=== PATIENT | female | born 1985 | race Caucasian/White ===

== ENCOUNTER 2020-01-09 18:41 | Emergency (ER) | payer OTHER, SELFPAY ==
[2020-01-09 18:48] VITALS: BP 124/76; BP 129/86; PULSE 79; PULSE 93; RESP 16; TEMP 36.1; O2SAT 97; O2SAT 99; BMI 34.4
--- NOTE | 2020-01-09 20:22 | PC.NURSE ---
190-PATIENT BROUGHT IN BY EMS FOR [facility] [place] [facility] [place] STATEMENTS TO SPOUSE. PATIENT REPORTS RECENTLY DRINKING TO COPE WITH STRESS OF JOB. PATIENT REPROTED HAVING A SALE AT WORK FALL THROUGH AND FEELING UPSET. PATIENT DENIES HAVING SI AT TIME OF CONVERSATION. PATIENT REPORTS FEELING IN BEHAVIORAL CONTROL. 1999-PATIENT SITTING IN [place] ROOM WATCHING TV AND INTERACTING WITH STAFF. NO QUESTIONS ON PLAN OF CARE. AFFECT IS CALM.
[2020-01-09 20:26] LABS: Anion Gap 20 (12-20); Blood Urea Nitrogen 9 mg/dL (9-16); Calcium 9.2 mg/dL (8.4-10.2); Carbon Dioxide 21 mmol/L (22-29); Chloride 108 mmol/L (96-108); Estimated Glomerular Filt Rate > 60; Glucose Random 91 mg/dL (60-115); Potassium 4.3 mmol/l (3.3-5.1); Sodium 145 mmol/L (135-145)
[2020-01-09 20:27] LABS: Basophils Absolute Auto 0.1 X10*3/uL (0.0-0.2); Basophils Percent Auto 0.7 % (0-2); Eosinophils Absolute Auto 0.1 X10*3/uL (0.0-0.4); Eosinophils Percent Auto 0.5 % (0-4); Hematocrit 47.4 % (37-47); Hemoglobin 15.7 g/dl (12.0-16.0); Imm Gran Abs Auto 0.04 X10*3/uL (0.00-0.03); Imm Gran Pct Auto 0.4 % (0.0-0.4); Lymphocytes Absolute Auto 3.9 X10*3/uL (1.2-4.9); Lymphocytes Percent Auto 35.3 % (20-40); MANUAL DIFF FLAG NO; Mean Corpuscular HGB Conc 33.1 g/dl (31.0-35.0); Mean Corpuscular Hemoglobin 29.6 pg (27.0-33.0); Mean Corpuscular Volume 89.4 fL (80-98); Mean Platelet Volume 10.2 fL (9.4-12.3); Monocytes Absolute Auto 0.3 X10*3/uL (0.1-1.2); Neutrophils Absolute Auto 6.6 X10*3/uL (2.0-8.3); Neutrophils Percent Auto 60.1 % (45-73); Platelet Count 344 X10*3/uL (160-400); Red Cell Distribution Width 13.4 % (11.0-16.0)
[2020-01-09 20:28] LABS: Ethanol 254 mg/dL
--- NOTE | 2020-01-09 21:00 | PC.NURSE ---
2030: PER PATIENT, SHE HAS A HISTORY OF ANXIETY AND SLEEP PROBLEMS THAT SHE TAKES CLONIDINE FOR. PATIENT STATES THAT SHE IS NOT COMPLIANT WITH MEDICATION AT HOME AND I ONLY TAKE MEDS WHEN I FEEL LIKE IT . PATIENT ASKED TO GIVE A NUMBER FOR HER ANXIETY, PATIENT STATES THAT IS SHE IS MODERATELY ANXIOUS. PATIENT OFFERED NONPHARMACOLOGICAL TREATMENTS FOR ANXIETY SUCH REDUCED STIMULATION, MUSIC, COLORING, JOURNALING, ECT. PATIENT REFUSED. PER PATIENT I'LL JUST WATCH TV HERE . PATIENT REMAINS HYPERVERBAL AND LOUDLY CONVERSES WITH STAFF, EASILY REDIRECTABLE. WILL CONTINUE TO MONITOR
--- NOTE | 2020-01-09 21:17 | ED_ITS ---
HPI - Psych General Chief Complaint: Psychiatric Symptoms Stated Complaint: crisis Time Seen by Provider: 01/09/20 19:26 Source: EMS Mode of arrival: EMS Limitations: no limitations History of Present Illness HPI Narrative: this is a pleasant 35-year-old female presenting via EMS from home with alcohol intoxication/ and suicidal ideation. Reports has been drinking alcohol due to increased feeling of depression and has been more stressed. States her symptoms has been going on for past several years with intermittent exacerbations states all started during an episode of depression that never properly got address. Admits to ETOH today otherwise denies any other illicit substance. Denies any recent injury, illness or fall. MD complaint: suicidal ideation, feels depressed and alcohol abuse Onset (ago): day(s) History of same: Yes Relieving factors: none and therapy ( She has had a therapist in the past but has not had any due to the COVID-19 and her therapist got a promotion) Context: recent alcohol abuse Associated psychiatric symptoms: depression Treatments prior to arrival: none If self harm: other ( SI without plan) Related Data Home Medications Medication Instructions Recorded Confirmed clonidine HCl 1 tab PO DAILY 01/09/20 01/09/20 diclofenac sodium 1 tab PO BID 01/09/20 01/09/20 gabapentin 3 cap PO TID PRN 01/09/20 01/09/20 Allergies Allergy/AdvReac Type Severity Reaction Status Date / Time amoxicillin [AMOXICILLIN] Allergy Severe RASH Unverified 12/15/19 15:32 Review of Systems Review of Systems: Constitutional: , No Fever, No Chills, No Night Sweats, No Fatigue, No Malaise ENT/Mouth: No Hearing loss, No Ear Pain, No Nasal Congestion, No Sinus Pain, No Hoarseness, No sore throat, No Rhinorrhea, No Swallowing Difficulty Eyes: No Eye Pain, No Swelling, No Redness, No Foreign Body, No Discharge, No Vision Changes Cardiovascular: No Chest Pain, No SOB, No Dyspnea on Exertion, No Orthopnea, No Edema, No Palpitations Respiratory: No Cough, No Sputum, No Wheezing, No Smoke Exposure, No Dyspnea Gastrointestinal: No Nausea, No Vomiting, No Diarrhea, No Constipation, No abdominal Pain, No Hematochezia, No Melena Genitourinary: no irregular bleeding, No Dysuria, No Urinary Frequency, No Hematuria, No Urinary Incontinence, No Urgency, No Flank Pain, No Urinary Flow Changes, No Hesitancy Musculoskeletal: No joint pain, No Myalgias, No Joint Swelling Skin: No Skin Lesions, No rash Neuro: No Weakness, No Numbness, No Paresthesias, No Loss of Consciousness, No Dizziness, No Headache Psych: No Anxiety/Panic, No Depression, No SI/HI/AH/VH, No Social Issues, Heme/Lymph: No Bruising, No Bleeding,No Lymphadenopathy Endocrine: No Polyuria, No Polydipsia, No Temperature Intolerance Yes all other systems are reviewed and are negative [facility] Past Medical History Attestation statement: The following information was validated with the patient. Medical History (Updated 01/09/20 @ 21:22 by Jerardo Cortes NP) Alcohol abuse Anxiety Depression Seizures Social History Social History Alcohol intake: current Alcohol intake frequency: a few times a week Alcohol type: beer and wine Smoking Status: Never smoker Use of substances other than those prescribed or required for medical reasons: No Advance Directives: No Advance Directives Information Provided: Yes Physical Exam Vital Signs: Vital Signs: Vital Signs Temp Pulse Resp BP Pulse Ox 01/09/20 18:48 97.0 F 93 16 129/86 97 Body Mass Index 34.4 Const: General: cooperative (found 35-year-old appearing slightly older than stated age somewhat tearful); No acute distress Nutritional Appearance: average body habitus Orientation/consciousness: patient oriented x3 HENMT: Head: Yes normal to inspection Ears: hearing grossly normal bilaterally Eyes: General: appearance normal, both eyes and all related structures Visual Wiley: normal visual wiley by confrontation Neck: Neck: Yes normal visual inspection and No tender Thyroid: Thyroid normal Chest: Chest palpation & inspection: normal inspection of the chest Resp: Effort & Inspection: normal respiratory effort Cardio: Jugular venous distension: no JVD GI: Inspection: Yes normal to inspection Percussion: Yes normal to percussion Auscultation: normal bowel sounds : General: Yes no CVA tenderness Back/Spine/Pelvis: Back: no CVA tenderness Skin: General skin exam: no rashes or lesions noted Neuro: General: patient oriented x3 Extrem: General: Yes normal to inspection Course Course Course Narrative: will check basic labs/ U tox/ ETOH and obtain care team evalu ation. Reevaluation(s) Reevaluation #1: remains common cooperative. At this time resting comfortably. Patient once clinically sober will be evaluated by the care team. Case discussed with care team had their who will see her own to 01:00 o'clock. Care transferred to 19 pending evaluation. MDM - Psych Restraints Face to Face Assessment: Face to Face Assessment: Current Situation: After assessment of the patient, a review of the pertinent medical record and a discussion with nursing staff, I feel the patient requires a restrain intervention. Reaction To: [] Medical Condition: [] Behavioral State: [] Continued Need: [] Lab Data Result diagrams: 01/09/20 20:23 01/09/20 19:49 Labs: Lab Results 01/09/20 01/09/20 01/09/20 Range/Units 19:49 19:49 19:49 WBC Cancelled RBC Cancelled Hgb Cancelled Hct Cancelled MCV Cancelled MCH Cancelled MCHC Cancelled RDW Cancelled Plt Count Cancelled MPV Cancelled Immature Gran % (Auto) (0.0-0.4) % Neut % (Auto) (45-73) % Lymph % (Auto) (20-40) % [place] % (Auto) (2-11) % Eos % (Auto) (0-4) % Baso % (Auto) (0-2) % Lymph # (Auto) (1.2-4.9) X10*3/uL [place] # (Auto) (0.1-1.2) X10*3/uL Eos # (Auto) (0.0-0.4) X10*3/uL Baso # (Auto) (0.0-0.2) X10*3/uL Abs Immat Gran (auto) (0.00-0.03) X10*3/uL Absolute Neuts (auto) (2.0-8.3) X10*3/uL Absolute Nucleated RBC Cancelled Nucleated RBC % (auto) Cancelled Neutrophils % (Manual) Cancelled Band Neutrophils % Cancelled Lymphocytes % (Manual) Cancelled Atypical Lymphs % (Man) Cancelled Monocytes % (Manual) Cancelled Eosinophils % (Manual) Cancelled Basophils % (Manual) Cancelled Metamyelocytes % Cancelled Myelocytes % Cancelled Promyelocytes % Cancelled Blast Cells % (Manual) Cancelled Plasma Cell % (Manual) Cancelled Abs Neuts (Manual) Cancelled Lymphocytes # (Manual) Cancelled Atyp Lymphs # (Manual) Cancelled Monocytes # (Manual) Cancelled Eosinophils # (Manual) Cancelled Basophils # (Manual) Cancelled Metamyelocytes # Cancelled Myelocytes # Cancelled Promyelocytes # Cancelled Blast Cells # Cancelled Plasma Cell # (Manual) Cancelled Nucleated RBCs Cancelled Hypersegmented Neuts Cancelled Smudge Cells Cancelled Toxic Granulation Cancelled Toxic Vacuolation Cancelled Dohle Bodies Cancelled Hayder Rods Cancelled WBC Morphology Comment Cancelled Platelet Estimate Cancelled Large Platelets Cancelled Giant Platelets Cancelled Plt Morphology Comment Cancelled RBC Morphology Cancelled Polychromasia Cancelled Hypochromasia Cancelled Basophilic Stippling Cancelled Microcytosis Cancelled Macrocytosis Cancelled Spherocytes Cancelled Pappenheimer Bodies Cancelled Sickle Cells Cancelled Target Cells Cancelled Tear Drop Cells Cancelled Ovalocytes Cancelled Stomatocytes Cancelled Rodriguez-Tahoma Bodies Cancelled Macy Cells Cancelled Acanthocytes (Spur) Cancelled Rouleaux Cancelled Schistocytes Cancelled Sodium 145 (135-145) mmol/L Potassium 4.3 (3.3-5.1) mmol/l Chloride 108 (96-108) mmol/L Carbon Dioxide 21 L (22-29) mmol/L Anion Gap 20 (12-20) BUN 9 (9-16) mg/dL Creatinine 0.72 (0.5-1.4) mg/dL Estim Creat Clear Calc 117.0 Estimated GFR > 60 Random Glucose 91 (60-115) mg/dL Calcium 9.2 (8.4-10.2) mg/dL Ethyl Alcohol 254 mg/dL 01/09/20 Range/Units 20:23 WBC 11.0 H RBC 5.30 Hgb 15.7 Hct 47.4 H MCV 89.4 MCH 29.6 MCHC 33.1 RDW 13.4 Plt Count 344 MPV 10.2 Immature Gran % (Auto) 0.4 (0.0-0.4) % Neut % (Auto) 60.1 (45-73) % Lymph % (Auto) 35.3 (20-40) % [place] % (Auto) 3.0 (2-11) % Eos % (Auto) 0.5 (0-4) % Baso % (Auto) 0.7 (0-2) % Lymph # (Auto) 3.9 (1.2-4.9) X10*3/uL [place] # (Auto) 0.3 (0.1-1.2) X10*3/uL Eos # (Auto) 0.1 (0.0-0.4) X10*3/uL Baso # (Auto) 0.1 (0.0-0.2) X10*3/uL Abs Immat Gran (auto) 0.04 H (0.00-0.03) X10*3/uL Absolute Neuts (auto) 6.6 (2.0-8.3) X10*3/uL Absolute Nucleated RBC 0.000 Nucleated RBC % (auto) 0.0 Neutrophils % (Manual) Band Neutrophils % Lymphocytes % (Manual) Atypical Lymphs % (Man) Monocytes % (Manual) Eosinophils % (Manual) Basophils % (Manual) Metamyelocytes % Myelocytes % Promyelocytes % Blast Cells % (Manual) Plasma Cell % (Manual) Abs Neuts (Manual) Lymphocytes # (Manual) Atyp Lymphs # (Manual) Monocytes # (Manual) Eosinophils # (Manual) Basophils # (Manual) Metamyelocytes # Myelocytes # Promyelocytes # Blast Cells # Plasma Cell # (Manual) Nucleated RBCs Hypersegmented Neuts Smudge Cells Toxic Granulation Toxic Vacuolation Dohle Bodies Hayder Rods WBC Morphology Comment Platelet Estimate Large Platelets Giant Platelets Plt Morphology Comment RBC Morphology Polychromasia Hypochromasia Basophilic Stippling Microcytosis Macrocytosis Spherocytes Pappenheimer Bodies Sickle Cells Target Cells Tear Drop Cells Ovalocytes Stomatocytes Rodriguez-Tahoma Bodies [place] Cells Acanthocytes (Spur) Rouleaux Schistocytes Sodium (135-145) mmol/L Potassium (3.3-5.1) mmol/l Chloride (96-108) mmol/L Carbon Dioxide (22-29) mmol/L Anion Gap (12-20) BUN (9-16) mg/dL Creatinine (0.5-1.4) mg/dL Estim Creat Clear Calc Estimated GFR Random Glucose (60-115) mg/dL Calcium (8.4-10.2) mg/dL Ethyl Alcohol mg/dL Discharge Plan Discharge Clinical Impression: Suicidal ideation, Alcohol intoxication Prescriptions: No Action gabapentin 300 mg capsule 3 cap PO TID PRN (Reason: Anxiety) RF: 0 clonidine HCl 0.2 mg tablet 1 tab PO DAILY RF: 0 diclofenac sodium 75 mg tablet,delayed release (/EC) 1 tab PO BID RF: 0
[2020-01-09 21:47] VITALS: BP 117/84; PULSE 89; RESP 18; TEMP 36.6; O2SAT 96
--- NOTE | 2020-01-09 22:09 | PC.NURSE ---
2100-PATIENT INTERACTING WITH STAFF AND OTHER PATIENT IN BACK [facility] ROOM. PATIENT IS NOW ANIMATED AND ALMOST HYPERVERBAL. SENTENCES ARE COHERENT AND AFFECT IS CALM. NO DISTRESS IS REPORTED. 2200-PATIENT CONTINUES TO BE ANIMATED IN CONVERSATION. PATIENT DENIES NEEDS.
[2020-01-09] MEDS: LORazepam 1 MG TABLET PO (23:59)
--- NOTE | 2020-01-10 00:03 | PC.NURSE ---
2200-PATIENT REMAINS HYPERVERBAL AND ANIMATED IN CONVERSATION. PATIENT OFFERED NON MEDICATION OPTIONS FOR ANXIETY REDUCTION. PT OFFERED WARM BLANKETS, REDUCED NOISE SETTING. PATIENT REFUSED. WILL CONTINUE TO MONITOR 2300-PATIENT SITTING IN [place], UNABLE TO REGULATE TONE OF VOICE. PATIENT EASILY REDIRECTED. PATIENT STATES SILENCE INCREASES ANXIETY. PT OFFERED HEADPHONES FOR MUSIC. 0000- PT MEDICATED WITH 1MG ATIVAN.
[2020-01-10 00:49] LABS: Glucose Urine UA NEG (NEG); Leukocyte Esterase Urine NEG (NEG); Nitrite Urine NEG (NEG); PH 5.5 (5.0-8.0); Specific Gravity - Urine 1.025 (1.005-1.025); Urine Blood NEG (NEG); Urine Ketones NEG (NEG); Urine Protein NEG (NEG-TRACE)
[2020-01-10 00:51] LABS: Appearance Urine CLEAR; Color Urine YELLOW; UPreg QC Valid YES; Urine Pregnancy NEGATIVE (NEGATIVE)
[2020-01-10 00:58] LABS: Mucus Urine 2+ /LPF; RBC Urine 0 /HPF (0); Squamous Epithelial Cell Urine 2+ /LPF; WBC Urine 0-2 /HPF (0-4)
--- NOTE | 2020-01-10 01:00 | PC.NURSE ---
Patient reports relief from anxiety. patient remains animated in conversation with staff. Patient given sandwich and offered fluids. Patient is no longer restless in chair.
[2020-01-10 01:14] LABS: Amphetamine Screen Urine Not Detected (Not Detect); Barbiturates, Urine Not Detected (Not Detect); Benzodiazepines Screen Urine Not Detected (Not Detect); Cannabinoid Screen Urine POSITIVE (Not Detect); Cocaine Screen Urine Not Detected (Not Detect); Opiate Screen Urine Not Detected (Not Detect); Phencyclidine Screen Urine Not Detected (Not Detect)
--- NOTE | 2020-01-10 02:03 | PC.NURSE ---
PER MLP PLAN AT THIS TIME IS TO BE DC HOME. PATIENT USING PHONE IN [place] TO CONTACT BOYFRIEND FOR RIDE.
[2020-01-10 02:10] VITALS: BP 125/81; PULSE 96; RESP 18; TEMP 35.9; O2SAT 96
--- NOTE | 2020-01-10 03:03 | MHC.CARE ---
Evaluated by CARE team with disposition for discharge home with referrals for outpatient therapy and partial hospitalization program. Pt also given information for psychiatrists in area that accept Medicaid.
== END 2020-01-10 02:16 | disposition home or self-care (01) ==
PROVIDERS: Nurse Practitioner Primary Care; Emergency Provider Emergency Medicine
DX: R45.851 Suicidal ideations (principal); F10.120 Alcohol abuse with intoxication, uncomplicated; Y90.8 Blood alcohol level of 240 mg/100 ml or more; F32.9 Major depressive disorder, single episode, unspecified; Z79.899 Other long term (current) drug therapy
CPT/HCPCS: 36415; 80048; 80307; 80320; 81001; 81025; 85007; 85025; 85027; 99284

== ENCOUNTER 2020-01-24 09:15 | Outpatient (RCR) | payer OTHER, SELFPAY ==
--- NOTE | 2020-01-11 13:21 | PC.NURSE ---
Pt was referred to PHP by the CARE team. Pt was scheduled for an intake assessment on 01/11/20. Pt had accepted the PHP virtual invitation, however was a no call/no show for the intake. TW attempted to call pt however was sent to voicemail after 3 rings. TW was unable to leave a message as the voicemail was not set up. Pt called back a few minutes later and stated that she forgot about the assessment and asked to reschedule. Pt rescheduled for 01/13/20 @ 1pm.
--- NOTE | 2020-01-16 12:02 | PC.ADMIT ---
Patient is a 35 year old female who started the PHP program today d/t increase in depression with passive SI and relapse on ETOH. Patient's boyfriend of 4 years reportedly called 911 after patient expressed passive suicidal statements while intoxicated. BAL was 254 Tox screen positive for marijuana. Patient was seen by the Care Team at [facility] and was referred to [facility] for f/u care. Patient reports multiple stressors. Patient has a seizure d/o and stated in April she had a seizure and fell resulting in bilateral foot fractures. She stated that she had 2 surgeries on her L foot the first in April the second in October. She stated she was bedridden for a month afterwards and that her sons stayed with her mother for a month as she was unable to care for them. Patient stated her depression recently started getting much worse thus relapsed on ETOH to cope after being sober for 18 months. She stated she relapsed on 3 occasions once in November and in October and last on January 09, 2020. Patient is not attending any substance use groups. Patient gave verbal permission to email her a copy of online substance groups and was strongly encouraged to participate in these groups while attending [facility] for more support. Denied symptoms of etoh withdrawal. Denied current SI or thoughts to harm self. Gave verbal permission to email her a copy of her safety plan. Patient reports last seizure in September 2019. Patient has a seizure d/o secondary to a complication from hx of Encephalitis diagnosed 6-7 years ago. Reports she has had Grand Mal seizures and partial complex seizures which she describes as her body shakes and she, stares off and is not responsive. Patient is on Gabapentin and depakote however has not been taking Depakote (last filled March 2019). Patient reports she has a upcoming neurology appointment with her neurologist and plans on reviewing the need to restart this medication. Last filled Seroquel 2017 and Trazodone June 2019 she has not been taking these medications as well. Ida Rodriguez APRN is aware.
[2020-01-16 13:18] VITALS: BMI 31.6
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
--- NOTE | 2020-01-23 09:33 | PC.NURSE ---
Pt did not show up for community meeting. I called her but was unable to leave a message. I received a recorded message that her voicemail is not set up .
--- NOTE | 2020-01-23 10:18 | PC.NURSE ---
I attempted to reach pt again via phone, as she did not show up for treatment today. I received the same msg- her voicemail is not yet set up , so I was not able to leave a message. After consulting with staff, I then called pt's emergency contact, Maddy Yeh, pt's mother (see release form). Pt's son answered the phone and said his mother is not home and that his grandmother, Maddy, is still sleeping . I did not say who I am, just that ill try again later.
--- NOTE | 2020-01-23 10:28 | PC.NURSE ---
Pt's mother, Maddy (emergency contact) called back. She said she has not heard from her daughter, who lives with her boyfriend. She did not sound concerned. She said her daughter is probably still sleeping . She gave me pt's cell phone, which turned out to be the number we have listed, that I have tried to call (VM not set up). I asked her to please have her daughter call me if she is able to reach her or hears from her.
--- NOTE | 2020-01-24 11:44 | P.PNPSP_ITS ---
Subjective Subjective Date of Service: 01/24/20 Reason For Visit: depression Interim History: Meg reports sleep is not much improved with Seroquel. Review of trials of sleep medications. Reports Trazodone, Remeron, Melatonin, Ambien without assist along with tricyclic trial. Discussed mood stabilizers i.e. [place] which she would like to trial as she has talked about this before with other providers. Discussed assistance in helping mood to calm so latency will be easier. Will trial for seven nights. Neuro appt on 01/25/20 Medication Compliance: Yes Side effects from medications: No Attending Groups: Yes Review of Systems Review of Systems Yes all other systems are reviewed and are negative Psychiatric: Reports abnormal sleep pattern Mental Status Exam Mental Status Exam Patient Orientation: Person, Place, Time and Situation Level of Consciousness: Awake and Appropriate Patient Behavior: Appropriate Mood Description: Calm and Flat Affect Description: Flat Patient Cognition Impaired: No Ability to Follow Directions: Excellent Speech Pattern: Clear and Spontaneous Speech Memory Description: Intact Hallucinations: None Delusions: Not Present Thought Process: Intact Thought Content: positive for Intact Depressive Symptoms: Insomnia Judgement: Good Diagnostics Vital Signs (24Hr): Body Mass Index 31.6 Assessment & Plan Patient educated on: diagnosis, medication risk/benefits, therapeutic strategies and medical condition Informed Consent: understands and further education needed Reason for contiued partial hosp. stay Substantial Risk for: inability to function, rapid decompensation and med/psych decompensation Certification I certify that partial hospital treatment is medically necessary due to the symptoms and problems resulting from the patient's mental illness and the failure to treat the patient at the partial hospital level of care would likely result in the patient requiring inpatient psychiatric care which could not be prevented at a less intensive level of care. Greater than 50% of the session was spent on counseling and/or coordination of care Discharge Plan Discharge Attending provider: Alli Quevedo Additional Instructions: [place] 300 mg HS-Trial of 7 days. Medications: New divalproex [Depakote] 500 mg tablet,delayed release (DR/EC) 500 mg PO TID Qty: 42 RF: 0 quetiapine [Seroquel] 50 mg tablet 50 mg PO BEDTIME Qty: 7 RF: 1 lithium carbonate 300 mg capsule 300 mg PO BEDTIME Qty: 7 RF: 0 No Action gabapentin 300 mg capsule 3 cap PO TID RF: 0 clonidine HCl 0.2 mg tablet 1 tab PO BEDTIME RF: 0
--- NOTE | 2020-01-25 09:21 | PC.NURSE ---
Tw contacted pt to check in as pt was not present in the 9am community meeting. Pt reports that she had called and left a message for Aggie at 830 explaining she had a migraine due to allergies and the weather. (Aggie is out today). Pt reported that she will be in program tomorrow, 01/26/20.
--- NOTE | 2020-01-25 09:31 | PC.NURSE ---
Spoke to Meg this morning. Stated she woke up at 0400 with a Migraine. She stated she has been suffering from allergies for the past week reporting sinus issues, sneezing. Started [place] last night. Did not sleep well. Reports she is hydrating, drinking alot of fluids. Plans on attending the program tomorrow. Darlene Rodriguez APRN is aware.
--- NOTE | 2020-01-26 09:19 | PC.NURSE ---
Pt did not attend Community meeting and did not call. Attempted to call pt but it went straight to voicemail and the voicemail was not set up yet so I could not leave a message. Will try again later.
--- NOTE | 2020-01-26 14:54 | PC.NURSE ---
Pt called out for treatment yesterday (01/25/2020), and she did not attend or show today. Namita Newby, teller supervisor, attempted to call her and the VM was still not set up yet . I again tried to call and the VM was not set up .
--- NOTE | 2020-01-26 15:02 | PC.NURSE ---
Spoke with pt's mother due to still not being able to contact pt. Mother reported pt's cell phone . Asked mother to relay message for pt to call her clinician, Aggie Vogt, as soon as possible. Mother agreed.
--- NOTE | 2020-01-27 10:43 | PC.NURSE ---
Patient completed labs on 01/25/20. Spoke to Mckayla from Cardiology and was told that patient was called and she did not want to come back to the hospital to complete an EKG.
--- NOTE | 2020-01-27 15:20 | PC.NURSE ---
pt called out today. She left a message stating she is unable to attend today, and wont be returning as she is unable to attend the amount of days required. her affect sounded bright, she thanked staff for helping, and she said I enjoyed the program while I was there . I attempted to call pt back several times but her VM was still not set up and she did not answer.
--- NOTE | 2020-01-27 15:42 | PC.NURSE ---
LM for Zara Sigala, pt's therapist at [facility] ([facility]), informing her of pt's attendance and discharge.
== END 2020-01-24 23:55 | disposition home or self-care (01) ==
LOC: HO.PHPA 09:15
PROVIDERS: Visit Provider Psychiatry & Neurology Psychiatry
DX: F32.9 Major depressive disorder, single episode, unspecified (principal)
CPT/HCPCS: 90792; 90853; 99213

== ENCOUNTER 2020-01-25 14:10 | Outpatient (REF) | payer OTHER, SELFPAY ==
[2020-01-25 15:06] LABS: MANUAL DIFF FLAG NO
[2020-01-25 15:12] LABS: Basophils Percent Auto 0.6 % (0-2); Eosinophils Absolute Auto 0.3 X10*3/uL (0.0-0.4); Eosinophils Percent Auto 4.4 % (0-4); Hematocrit 42.8 % (37-47); Hemoglobin 13.9 g/dl (12.0-16.0); Imm Gran Abs Auto 0.02 X10*3/uL (0.00-0.03); Imm Gran Pct Auto 0.3 % (0.0-0.4); Lymphocytes Absolute Auto 2.2 X10*3/uL (1.2-4.9); Lymphocytes Percent Auto 31.6 % (20-40); Mean Corpuscular HGB Conc 32.5 g/dl (31.0-35.0); Mean Corpuscular Hemoglobin 29.9 pg (27.0-33.0); Mean Platelet Volume 11.1 fL (9.4-12.3); Monocytes Absolute Auto 0.3 X10*3/uL (0.1-1.2); Monocytes Percent Auto 4.5 % (2-11); Neutrophils Percent Auto 58.6 % (45-73); Platelet Count 207 X10*3/uL (160-400); Red Blood Count 4.65 X10*6/uL (4.20-5.50); Red Cell Distribution Width 12.9 % (11.0-16.0); White Blood Count 6.9 X10*3/uL (4.8-10.8)
[2020-01-25 15:30] LABS: Alanine Aminotransferase 8 U/L (0-31); Albumin Level 4.4 g/dL (3.5-5.0); Alkaline Phosphatase 78 U/L (39-117); Anion Gap 11 (12-20); Aspartate Amino Transferase 14 U/L (5-31); Bilirubin Total 0.2 mg/dL (0.0-1.0); Blood Urea Nitrogen 8 mg/dL (9-16); Calcium 9.1 mg/dL (8.4-10.2); Carbon Dioxide 25 mmol/L (22-29); Chloride 107 mmol/L (96-108); Estimated Glomerular Filt Rate > 60; Glucose Random 81 mg/dL (60-115); Magnesium 2.2 mg/dL (1.6-2.6); Potassium 4.4 mmol/l (3.3-5.1); Sodium 139 mmol/L (135-145); Total Protein 6.6 g/dL (6.5-8.0)
[2020-01-25 15:33] LABS: Alanine Aminotransferase 8 U/L (0-31); Albumin Level 4.4 g/dL (3.5-5.0); Alkaline Phosphatase 78 U/L (39-117); Aspartate Amino Transferase 14 U/L (5-31); Bilirubin Direct < 0.2 mg/dL (0.0-0.5); Bilirubin Total 0.2 mg/dL (0.0-1.0); Estimated Average Glucose 82 mg/dL; Hemoglobin A1c % 4.5 %; Total Protein 6.5 g/dL (6.5-8.0)
[2020-01-25 15:36] LABS: Valproate 78.6 mcg/mL (50.0-100.0)
[2020-01-25 15:51] LABS: Thyroid Stimulating Hormone 1.54 mIU/mL (0.32-4.0); Vitamin D 25-OH Total 10.3 ng/mL (>30)
[2020-01-25 16:07] LABS: Folate 7.4 ng/mL (> or = 4.0); Vitamin B12 417 pg/mL (200-900)
== END 2020-01-25 14:11 | disposition home or self-care (01) ==
LOC: HO.LAB 14:10
PROVIDERS: Referring Provider Clinical Nurse Specialist Psychiatric/Mental Health, Adult; Visit Provider Psychiatry & Neurology Neurology
DX: F33.2 Major depressive disorder, recurrent severe without psychotic features (principal)
CPT/HCPCS: 36415; 80053; 80076; 80164; 82248; 82306; 82607; 82746; 83036; 83735; 84443; 85025

== ENCOUNTER 2020-07-19 16:41 | Emergency (ER) | payer OTHER, SELFPAY ==
--- NOTE | ~2020-07-19 | XR_ITS ---
EXAMINATION: XR CHEST CLINICAL INFORMATION: Productive cough COMPARISON: 06/03/2019 TECHNIQUE: Frontal view of the chest was obtained. FINDINGS: No significant abnormality is noted involving the heart, lungs, mediastinum, bony thorax or soft tissues. Compared to the prior study, lungs are much better expanded. XR/XR chest 1V IMPRESSION: Normal chest radiograph
[2020-07-19 18:17] VITALS: BP 134/76; PULSE 78; RESP 16; TEMP 37.2; O2SAT 98; BMI 29.7
[2020-07-19 18:46] LABS: COVID-19 Test Negative (Negative)
[2020-07-19 18:57] VITALS: BP 120/75; PULSE 76; RESP 18; TEMP 36.3; O2SAT 100
--- NOTE | 2020-07-19 19:34 | ED.URI ---
HPI - URI/Sore Throat General Chief Complaint: Upper Respiratory Symptoms Stated Complaint: Covid symptoms Time Seen by Provider: 07/19/20 19:22 Source: patient Mode of arrival: ambulatory Limitations: no limitations History of Present Illness HPI Narrative: Patient is a 35-year-old female with a past medical history of seizures, depression, anxiety and alcohol use who is complaining of 2 days of cough, body aches, states it feels like there is an elephant on her chest. She states she has coughing fits words hard to stop and catch her breath but denies shortness of breath. She also admits to watery diarrhea but denies any blood or black in the stool. Denies any abdominal pain nausea or vomiting. Is able to tolerate food and liquids. States her son and are also sick with similar symptoms, her son was diagnosed with strep today but his COVID test does not resulted. She denies any fever or chest pain. Related Data Home Medications Medication Instructions Recorded Confirmed clonidine HCl 1 tab PO BEDTIME 01/09/20 01/16/20 gabapentin 3 cap PO TID 01/09/20 01/16/20 Previous Rx's Medication Instructions Recorded divalproex [Depakote] 500 mg PO TID #42 tab 01/16/20 quetiapine [Seroquel] 50 mg PO BEDTIME #7 tab 01/16/20 lithium carbonate 300 mg PO BEDTIME #7 cap 01/24/20 albuterol sulfate [Ventolin HFA] 2 puff INHALATION Q4-6H PRN #8.5 g 07/19/20 prednisone 40 mg PO DAILY 5 Days #10 tab 07/19/20 Allergies Allergy/AdvReac Type Severity Reaction Status Date / Time amoxicillin [AMOXICILLIN] Allergy Severe RASH Verified 07/19/20 19:08 Review of Systems Review of Systems: Yes all other systems are reviewed and are negative FORMERLY [facility] Past Medical History Medical History Alcohol abuse Anxiety Depression Foot fracture Seizures Surgical History H/O: hysterectomy History of foot surgery History of sleeve gastrectomy Hx of section Hx of laparoscopic gastric banding Social History Social History Household Members: Significant Other and Children Alcohol intake: current Alcohol intake frequency: a few times a week Alcohol type: beer and wine Smoking Status: Unknown if ever smoked Advance Directives: No Advance Directives Information Provided: No Physical Exam Vital Signs: Vital Signs: Last Vital Signs Temp 97.4 F 07/19/20 18:57 Pulse 76 07/19/20 18:57 Resp 18 07/19/20 18:57 BP 120/75 07/19/20 18:57 Pulse Ox 100 07/19/20 18:57 Body Mass Index 29.7 Const: General: cooperative, healthy appearing, comfortable and no acute distress Nutritional Appearance: average body habitus Orientation/consciousness: patient oriented x3 Eyes: General: appearance normal, both eyes and all related structures Neck: Neck: Yes normal visual inspection, Yes full ROM, Yes trachea midline and Yes supple Chest: Chest palpation & inspection: normal inspection of the chest and abnormal palpation of chest wall (Reproducible TTP of chest wall) Resp: Effort & Inspection: normal respiratory effort and able to speak in complete sentences Auscultation: no crackles, no rales, no rhonchi and wheezes Cardio: Rate: regular rate Rhythm: regular rhythm Heart sounds: normal S1 and S2 GI: Inspection: Yes normal to inspection Palpation (GI): Soft to palpation and nontender Auscultation: normal bowel sounds Skin: General skin exam: no rashes or lesions noted Neuro: General: patient oriented x3 Course Course Course Narrative: Patient is a 35-year-old female with past medical history of anxiety, depression, seizures and alcohol use complaining of 2 days of cough, body aches and diarrhea. Physical exam reveals but inspiratory and expiratory wheezing, nothing else remarkable. Patient appears well hydrated and her vital signs are stable. COVID test was negative, rapid strep was negative, chest x-ray negative for acute process. Will discharge home with prescriptions for prednisone and inhaler. MDM - URI/Sore Throat Lab Data Labs: Lab Results 07/19/20 Range/Units 18:22 COVID-19 (JEANNA) Negative (Negative) COVID-19 Clin Com See Note Discharge Plan Discharge Clinical Impression: Bronchitis Patient Disposition: Home, Self-Care Instructions: Acute Bronchitis (ED) Additional Instructions: Your COVID test was negative today however there are false negatives so if your son or your boyfriend test positive, you can assume you are positive as well. Please adhere to self-quarantine if anyone in your household tests positive. Otherwise, please state well hydrated and treat your symptoms. I will prescribe an inhaler and a 5 day course of prednisone to help with your wheezing. Prescriptions: New prednisone 20 mg tablet 40 mg PO DAILY 5 Days Qty: 10 RF: 0 albuterol sulfate [Ventolin HFA] 90 mcg/actuation HFA aerosol inhaler 2 puff inhalation Q4-6H PRN (Reason: shortness of breath or wheezing) Qty: 8.5 RF: 0 No Action divalproex [Depakote] 500 mg tablet,delayed release (DR/EC) 500 mg PO TID Qty: 42 RF: 0 quetiapine [Seroquel] 50 mg tablet 50 mg PO BEDTIME Qty: 7 RF: 1 lithium carbonate 300 mg capsule 300 mg PO BEDTIME Qty: 7 RF: 0 gabapentin 300 mg capsule 3 cap PO TID RF: 0 clonidine HCl 0.2 mg tablet 1 tab PO BEDTIME RF: 0
== END 2020-07-19 19:59 | disposition home or self-care (01) ==
PROVIDERS: Emergency Provider Internal Medicine
DX: J20.8 Acute bronchitis due to other specified organisms (principal); R05 Cough; M79.10 Myalgia, unspecified site; Z20.822 Contact with and (suspected) exposure to COVID-19; Z79.899 Other long term (current) drug therapy
CPT/HCPCS: 36415; 71045; 87071; 87635; 87880; 99284